=== PATIENT | male | born 1975 | race African-American/Black ===

== ENCOUNTER 2016-08-06 19:24 | Emergency (ER) | payer OTHER ==
--- NOTE | 2016-08-06 20:38 | PROVIDER DOCUMENTATION ---
Addendum entered and electronically signed by Lin Boone PA 00:08: Progress - PLAN OF CARE/RESULTS Progress/Plan/Lab Results: Laboratory Tests 08/06/16 20:45 Urine Source VOIDED Urine Color YELLOW Urine Clarity SL. CLOUDY A Urine pH 8.0 Ur Specific [place] 1.010 Urine Protein NEGATIVE Urine Ketones NEGATIVE Urine Blood NEGATIVE Urine Nitrite NEGATIVE Urine Bilirubin NEGATIVE Urine Urobilinogen NORMAL Urine Microscopic RBC Not Reportable Urine WBC NEGATIVE Urine Bacteria 1+ Urine Glucose NEGATIVE Orders Category Date Time Status URINALYSIS PL W/POSS RFLX CULT [URINALYSIS] Stat Lab 08/06/16 20:45 Completed Ketorolac [Toradol] Med 08/06/16 20:59 Discontinued 60 mg IM NOW ONE Vital Signs Temp Pulse Resp BP Pulse Ox 08/06/16 22:26 98 F 83 18 148/92 98 08/06/16 19:39 97 F L 95 H 18 136/85 95 Penicillins Allergy (Verified 01/14/16 21:55) DIARRHEA Lisinopril 10 mg PO DAILY 08/08/15 Acetaminophen with Codeine [Tylenol with Codeine #3] 1 each PO Q4H PRN PRN #10 tablet 08/06/16 Omeprazole [Prilosec] 20 mg PO DAILY 08/06/16 Laboratory 08/06/16 20:45 Urine Source VOIDED Urine Color YELLOW Urine Clarity SL. CLOUDY A Urine pH 8.0 Ur Specific [place] 1.010 Urine Protein NEGATIVE Urine Ketones NEGATIVE Urine Blood NEGATIVE Urine Nitrite NEGATIVE Urine Bilirubin NEGATIVE Urine Urobilinogen NORMAL Urine Microscopic RBC Not Reportable Urine WBC NEGATIVE Urine Bacteria 1+ Urine Glucose NEGATIVE Discussed results and f/u with pt. Original Note: HPI-Musculoskeletal Pain/Inj - GENERAL Source: patient - HX OF PRESENT ILLNESS-MUSKULOSKELTAL Quality of Pain: reports: aching Severity in ED: mild Onset/Duration: other (2 months) Modifying Factors: worse with: movement, other (walking) <Bette Rivera - Last Filed: 08/06/16 20:42> <Lin Boone - Last Filed: 08/06/16 21:25> - GENERAL Chief Complaint: Groin Pain Stated Complaint: FLU SX Time Seen by Provider: 08/06/16 20:34 - HX OF PRESENT ILLNESS-MUSKULOSKELTAL Nature of Presenting Problem: 41 year old M presents to the ED with a cc of right wrist pain x2 months. PT states that he had a MRI and picked up his results today. PT also c/o right groin pain. PT states that he believes he has a hernia. PT states that he had a US on the for epiditimitis and was told that he had a possible right inguinal hernia (Bette Rivera) Review of Systems - Adult - REVIEW OF SYSTEMS - ADULT Constitutional: denies: chills, fever Eyes: reports: no symptoms reported Ears, Nose, Mouth & Throat: reports: no symptoms reported Cardiovascular: reports: no symptoms reported Respiratory: reports: no symptoms reported Gastrointestinal: denies: nausea, vomiting Genitourinary: reports: other (right groin pain) Musculoskeletal: reports: joint pain. denies: muscle weakness Integumentary: denies: skin sores/ulcer, skin thickening Neurological: reports: no symptoms reported Psychiatric: reports: no symptoms reported Endocrine: reports: no symptoms reported Hematologic/Lymphatic: reports: no symptoms reported Allergic/Immunologic: reports: no symptoms reported All Other Systems: Reviewed and Negative <Bette Rivera - Last Filed: 08/06/16 20:42> Past History - Adult - PAST MEDICAL HISTORY-ADULT Review of Records: reports: Nursing Assessment Review, Medications Reviewed Major Childhood Illnesses: reports: denies history Cardiovascular: reports: HTN Psychiatric: reports: ptsd - PRIOR SURGERIES/PROCEDURES Surgical/Procedure History: reports: reviewed, not pertinent - PRIOR HOSPITALIZATIONS Prior Hospitalizations: reports: none - IMMUNIZATION STATUS Childhood Immunizations: See Nurse Assessment Flu Vaccine: See Nurse Assessment - FAMILY HISTORY Family History: reviewed, not pertinent - SOCIAL HISTORY Smoking: cigarettes, greater than 1 pack/day Provider spent 3-5 mins advising pt. on dangers of tobacco.: Discussed manners to quit use, and f/u contacts for add'l counseling. Substance Use: none/never Alcohol Use Frequency: occasionally <Bette Rivera - Last Filed: 08/06/16 20:42> Physical Exam-Injury Related - Physical Exam-Injury Related Initial Vital Signs Reviewed: Yes General Appearance: appears well, alert, no apparent distress Respiratory: chest non-tender, lungs clear, normal breath sounds Cardiovascular: normal peripheral pulses, regular rate, rhythm, no edema Extremity: tenderness (right wrist) Integumentary: normal color, warm/dry Psych/Mental Status: AL, normal mood/affect, normal thought content, normal thought process, oriented x 3 <MiguelBette - Last Filed: 08/06/16 20:42> Departure - Departure Certified Medical Emergency: Emergent <MiguelBette - Last Filed: 08/06/16 20:42> - Departure Time of Disposition Order: 21:23 Certified Medical Emergency: Emergent <Lin Boone - Last Filed: 08/06/16 21:25> - Departure DIAGNOSIS: Wrist pain, right Inguinal pain Qualifiers: Laterality: right Qualified Code(s): R10.31 - Right lower quadrant pain Disposition: HOME 01 Condition: Good Additional Instructions: Follow up with specialist for further management. Bring MRI scans with you. Take medications as directed. ED Follow Up Instructions: You have been treated by a care provider in the Emergency Department. These instructions are being provided to you so you can have an understanding of how to care for yourself upon discharge. Upon discharge from the Emergency Department, you are responsible for making arrangements for follow-up care by a physician of your choice. Take all prescribed medications as directed. Return to the Emergency Department immediately for any new or worsening symptoms. You may call the Physician Referral phone number at [phone] to obtain a list of Physicians who are taking new patients. Prescriptions: Acetaminophen with Codeine [Tylenol with Codeine #3] 1 each PO Q4H PRN PRN #10 tablet PRN Reason: Pain Referrals: [facility] [Provider Group] Palomo Nunez MD [STAFF PHYSICIAN] - Attestation - Scribe Verification/Attestation Scribe:: Bette Rivera Acting as Scribe for:: Lin Boone Scribe documention review:: This chart was documented by a scribe and accurately reflects the service the provider performed and the decisions made by the provider. <Bette Rivera - Last Filed: 08/06/16 20:42> Physician Attestation - Physician Attestation I, the provider, attest to the following statement:: Lin Boone Physician documentation Attestation:: This documentation recorded by the scribe accurately reflects the service I personally performed and the decisions made by me. <Bette Rivera - Last Filed: 08/06/16 20:42>
[2016-08-06 20:58] LABS: URINE CULTURE PL NEEDED? NO; URINE SOURCE VOIDED
[2016-08-06] MEDS ORDERED: TORADOL IM ONE (20:59)
[2016-08-06 21:07] LABS: BILIRUBIN URINE NEGATIVE (NEGATIVE); BLOOD URINE NEGATIVE (NEGATIVE); CLARITY SL. CLOUDY (CLEAR); COLOR YELLOW; GLUCOSE URINE NEGATIVE (NEGATIVE); LEUKOCYTES URINE NEGATIVE (NEGATIVE); NITRITE URINE NEGATIVE (NEGATIVE); PROTEIN URINE NEGATIVE (NEGATIVE); UROBILINOGEN URINE NORMAL
[2016-08-06 22:27] VITALS: BP 148/92
== END 2016-08-06 22:27 | disposition home or self-care (01) ==
LOC: P.ED 19:24
DX: M25.531 Pain in right wrist (principal); R10.31 Right lower quadrant pain; I10 Essential (primary) hypertension; F17.210 Nicotine dependence, cigarettes, uncomplicated; Z71.6 Tobacco abuse counseling
CPT/HCPCS: 81001; 96372; J1885